=== PATIENT | female | born 1990 | race Caucasian/White ===

== ENCOUNTER 2018-03-14 13:25 | Emergency (ER) | payer MEDICAID ==
[~2018-03-14] VITALS: Ht 157.5 cm; Wt 89.8 kg
[2018-03-14 13:34] VITALS: Ht 157.5 cm; Wt 89.8 kg
[2018-03-14 14:33] LABS: CALCIUM 8.8 mg/dL (8.5-10.1); CHLORIDE SERUM 106 mmol/L (98-107); CREATININE SERUM 0.7 mg/dL (0.6-1.0); GFR1 > 60 mL/min; GLUCOSE SERUM 132 mg/dL (74-106); POTASSIUM SERUM 3.9 mmol/L (3.5-5.1); SODIUM SERUM 143 mmol/L (136-145)
[2018-03-14 14:37] LABS: ALKALINE PHOSPHATASE 121 U/L (46-116); ALT/SGPT 18 U/L (14-59); AST/SGOT 14 U/L (15-37); BILIRUBIN TOTAL 0.2 mg/dL (0.20-1.00); LIPASE 88 IU/L (73-393)
[2018-03-14 14:50] LABS: ALBUMIN 3.3 g/dL (3.4-5.0)
[2018-03-14 14:59] LABS: BASOPHIL % 0.4 % (0-2); PLATELET COUNT 385 x10^3mcL (130-400); RED CELL DISTRIBUTION WIDTH 14.3 % (11.5-14.5)
[2018-03-14 15:46] VITALS: BP 124/75
== END 2018-03-14 15:46 | disposition home or self-care (01) ==
LOC: ED 13:25
PROVIDERS: Specialist
DX: K29.70 Gastritis, unspecified, without bleeding (principal); J45.909 Unspecified asthma, uncomplicated
CPT/HCPCS: 36415

== ENCOUNTER 2018-04-12 21:55 | Emergency (ER) | payer MEDICAID ==
[~2018-04-12] VITALS: Ht 157.5 cm; Wt 88.0 kg
[2018-04-12 22:05] VITALS: Ht 157.5 cm; Wt 88.0 kg
[2018-04-12 22:51] LABS: BASOPHIL % 0.1 % (0-2); RED CELL DISTRIBUTION WIDTH 13.9 % (11.5-14.5)
[2018-04-12 22:54] LABS: PLATELET COUNT 430 x10^3mcL (130-400)
[2018-04-12 23:06] LABS: CALCIUM 8.9 mg/dL (8.5-10.1); CARBON DIOXIDE 27.5 mmol/L (21-32); CHLORIDE SERUM 103 mmol/L (98-107); CREATININE SERUM 0.9 mg/dL (0.6-1.0); GFR1 > 60 mL/min; GLUCOSE SERUM 150 mg/dL (74-106); POTASSIUM SERUM 3.8 mmol/L (3.5-5.1); SODIUM SERUM 139 mmol/L (136-145)
[2018-04-13 00:36] VITALS: BP 119/63
== END 2018-04-13 00:36 | disposition home or self-care (01) ==
LOC: ED 21:55
PROVIDERS: Emergency Medicine
DX: R51 Headache (principal); R11.0 Nausea; H53.8 Other visual disturbances; R42 Dizziness and giddiness; J45.909 Unspecified asthma, uncomplicated
CPT/HCPCS: J1200; J1885; J2765; J7030

== ENCOUNTER 2018-04-24 07:18 | Emergency (ER) | payer MEDICAID ==
[~2018-04-24] VITALS: Ht 160 cm; Wt 87.1 kg
[2018-04-24 07:20] VITALS: Ht 160 cm; Wt 87.1 kg
[2018-04-24 09:54] VITALS: BP 113/70
== END 2018-04-24 09:54 | disposition home or self-care (01) ==
LOC: ED 07:18
DX: J45.901 Unspecified asthma with (acute) exacerbation (principal); E66.01 Morbid (severe) obesity due to excess calories
CPT/HCPCS: J2930; J7613; J7644

== ENCOUNTER 2019-04-02 07:22 | Emergency (ER) | payer MEDICAID ==
[~2019-04-02] VITALS: Ht 160 cm; Wt 88.0 kg
[2019-04-02 07:31] VITALS: BP 124/87; Ht 160 cm; Wt 88.0 kg
[2019-04-02 08:05] LABS: BASOPHIL % 0.5 % (0-2); PLATELET COUNT 392 x10^3mcL (130-400); RED CELL DISTRIBUTION WIDTH 13.5 % (11.5-14.5)
[2019-04-02 08:30] LABS: UA SPECIFIC GRAVITY 1.025 (1.005-1.035); microscopic required? YES; urine erythrocyte 3+ (NEGATIVE)
== END 2019-04-02 10:43 | disposition home or self-care (01) ==
LOC: ED 07:22
PROVIDERS: Emergency Medicine
DX: N93.8 Other specified abnormal uterine and vaginal bleeding (principal); J45.909 Unspecified asthma, uncomplicated
CPT/HCPCS: 36415

== ENCOUNTER 2020-07-04 22:51 | Emergency (ER) | payer MEDICAID ==
[~2020-07-04] VITALS: Ht 154.9 cm; Wt 92.2 kg
[2020-07-04 22:56] VITALS: Ht 154.9 cm; Wt 92.2 kg
[2020-07-04 23:56] LABS: BASOPHIL % 0.4 % (0-2); PLATELET COUNT 397 x10^3mcL (130-400); microscopic required? YES; urine erythrocyte 3+ (NEGATIVE)
[2020-07-04 23:57] LABS: RED CELL DISTRIBUTION WIDTH 15.5 % (11.5-14.5)
[2020-07-05 00:18] LABS: HCG SERUM QUALITATIVE NEGATIVE; HCG SERUM QUANTITATIVE 0 mIU/mL
[2020-07-05 01:19] VITALS: BP 108/82
== END 2020-07-05 01:19 | disposition home or self-care (01) ==
LOC: ED 22:51
PROVIDERS: Emergency Medicine
DX: N93.8 Other specified abnormal uterine and vaginal bleeding (principal); J45.909 Unspecified asthma, uncomplicated

== ENCOUNTER 2020-09-03 16:27 | Emergency (ER) | payer MEDICAID, SELFPAY ==
[~2020-09-03] VITALS: Ht 160 cm; Wt 90.7 kg
[2020-09-03 16:29] VITALS: Ht 160 cm; Wt 90.7 kg
[2020-09-03 17:43] VITALS: BP 104/63
== END 2020-09-03 17:43 | disposition home or self-care (01) ==
LOC: ED 16:27
DX: J45.909 Unspecified asthma, uncomplicated (principal); Z20.828 Contact with and (suspected) exposure to other viral communicable diseases
CPT/HCPCS: U0003